=== PATIENT | male | born 1975 | race Caucasian/White ===

== ENCOUNTER 2017-02-05 19:03 | Emergency (ER) | payer OTHER ==
[2017-02-05] MEDS ORDERED: MOTRIN 600 MG PO ONE (19:27)
[2017-02-05] MEDS ORDERED: MOTRIN 600 MG ONE (19:29)
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
[2017-02-05 20:23] VITALS: BP 162/84; PULSE 82; O2SAT 98
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
== END 2017-02-05 20:28 | disposition home or self-care (01) ==
LOC: SUPCPDRO 19:03 → ED 19:03
DX: S00.83XA Contusion of other part of head, initial encounter (principal); K02.9 Dental caries, unspecified; Y04.0XXA Assault by unarmed brawl or fight, initial encounter
CPT/HCPCS: 70450; 70486; 99284; A9270-GY

== ENCOUNTER 2018-12-07 15:52 | Emergency (ER) | payer MEDICAID, OTHER ==
[2018-12-07 16:06] VITALS: BP 143/85; PULSE 78; O2SAT 97
--- NOTE | 2018-12-07 16:10 | ERPHSYRPT ---
- History of Present Illness Time Seen by Provider: 12/07/18 16:00 Source: patient Exam Limitations: clinical condition Physician History: PATIENT COMPLAINS OF A LEFT UPPER CHIPPED TOOTH FOR 6 MONTHS, HAS INCREASING PAIN WITH FACIAL SWELLING X 2 DAYS. DENIES FEVER, DIFFICULTY BREATHING OR SWALLOWING. Timing/Duration: gradual onset Severity: moderate ENT Location: dental Prearrival Treatment: no prearrival treatment Modifying Factors: Improves With: other (HOT OR COLD FOOD) Associated Symptoms: facial pain/swelling Allergies/Adverse Reactions: cephalexin [From Keflex] Allergy (Verified 02/05/17 19:22) Hives morphine Allergy (Verified 02/05/17 19:23) Hives Hx Tetanus, Diphtheria Vaccination/Date Given: Yes Hx Influenza Vaccination/Date Given: Yes Hx Pneumococcal Vaccination/Date Given: No - Review of Systems Constitutional: No Fever, No Chills Eyes: No Symptoms Ears, Nose, & Throat: Other (DENTAL PAIN, FACIAL SWELLING) Respiratory: No Cough, No Dyspnea Cardiac: No Symptoms, No Chest Pain, No Edema, No Syncope Abdominal/Gastrointestinal: No Symptoms, No Abdominal Pain, No Nausea, No Vomiting, No Diarrhea Genitourinary Symptoms: No Dysuria Musculoskeletal: No Back Pain, No Neck Pain Skin: No Rash Neurological: No Dizziness, No Focal Weakness, No Sensory Changes Psychological: No Symptoms Endocrine: No Symptoms All Other Systems: Reviewed and Negative - Past Medical History Pertinent Past Medical History: Yes Neurological History: Migraines ENT History: No Pertinent History Cardiac History: Hypertension Respiratory History: COPD Endocrine Medical History: No Pertinent History Musculoskeletal History: Arthritis GI Medical History: GERD History: No Pertinent History Psycho-Social History: Anxiety, Depression Male Reproductive Disorders: No Pertinent History - Past Surgical History Past Surgical History: No Neuro Surgical History: No Pertinent History Cardiac: No Pertinent History Respiratory: No Pertinent History Gastrointestinal: No Pertinent History Genitourinary: No Pertinent History Musculoskeletal: No Pertinent History Male Surgical History: No Pertinent History Other Surgical History: colonoscopy - Social History Smoking Status: Current every day smoker How long have you smoked: years Drug Use: none Patient Lives Alone: No - Physical Exam General Appearance: no apparent distress Eye Exam: bilateral eye: normal inspection, PERRL, EOMI Ear Exam: bilateral ear: auricle normal, canal normal, TM normal Nasal Exam: normal inspection Throat Exam: normal (LEFT UPPER BICUSPID TOOTH CARIES WITH EROSION INTO GINGIVA , SURROUNDING [place] SWELLING) Neck Exam: normal inspection, non-tender Cardiovascular/Respiratory Exam: chest non-tender, normal breath sounds, decreased pulses Abdominal Exam: non-tender, soft Neurologic Exam: alert, oriented x 3 - Progress Counseled pt/family regarding: need for follow-up - Departure Departure Disposition: Home Clinical Impression: DENTAL CARIES Condition: Stable Critical Care Time: No Referrals: WOJCIECH OGLESBY [Primary Care Provider] - Additional Instructions: ANTIBIOTIC AUGMENTIN 875MG TWICE DAILY FOR 10 DAYS. TORADOL 10MG EVERY 6 HOURS FOR MILD TO MODERATE PAIN. PERCOCET 5/325 EVERY 6 HOURS FOR PAIN. CONSULT YOUR DENTIST FOR FOLLOWUP. Prescriptions: Ketorolac Tromethamine [Toradol] 10 mg PO Q6HPRN PRN #20 tablet PRN Reason: Pain Oxycodone/APAP 5 mg/325 mg [Percocet Tablet 5/325Mg] 1 tab PO Q6H PRN PRN # 8 tablet MDD 4 PRN Reason: DENTAL PAIN Amox Tr/Potass Clav. 875 mg [Augmentin 875-125 Tablet] 875 mg PO BID #20 tablet
== END 2018-12-07 16:30 | disposition home or self-care (01) ==
LOC: ED 15:52
DX: K02.9 Dental caries, unspecified (principal)
CPT/HCPCS: 99283